=== PATIENT | female | born 1950 | race Two or more races ===

== ENCOUNTER 2018-06-18 23:27 | Inpatient (IN) | payer MEDICARE, BC ==
[~2018-06-18] VITALS: Ht 152.4 cm; Wt 46.3 kg
[2018-06-18 23:43] VITALS: BP 132/57
--- NOTE | 2018-06-18 23:43 | NUR ---
RN OPENING NOTES: RECEIVED PT FROM MICHELLE ACCOMPANIED BY 2 SEARCH ENGINE OPTIMIZATION MANAGER. PT ON ROOM AND TOLERATING WELL. NO SOB NOTED. NO S/S OF DISTRESS. PT HAS SLIGHT FACIAL DROOPING ON RIGHT SIDE OF FACE. PT HAS IV ON L AC #22G AND IS PATENT AND INTACT. CURRENTLY H/L FOR NOW. BED KEPT IN LOW, LOCKED POSITION, AND SIDE RAILS X 2UP. WILL CONTINUE TO MONITOR PT.
[2018-06-18] MEDS ORDERED: ESTR2TAB5 PO (23:59)
[2018-06-18] MEDS ORDERED: ROSU40TA PO (23:59)
[2018-06-18] MEDS ORDERED: ESOM40CA PO (23:59)
[2018-06-18] MEDS ORDERED: CLOP75TA15 PO (23:59)
[2018-06-19] VITALS: BP 132/57
[2018-06-19] MEDS ORDERED: ACETAMINOPHEN 325 MG TABLET PO PRN (00:30)
[2018-06-19] MEDS ORDERED: ZOLPIDEM TARTRATE 5 MG TABLET PO PRN (00:30)
[2018-06-19] MEDS ORDERED: Z GUARD REMEDY 2 OZ OINT TP PRN (00:30)
[2018-06-19] MEDS ORDERED: MAGNESIUM HYDROXIDE 30 ML UDC PO PRN (00:30)
[2018-06-19] MEDS ORDERED: HYDROCODONE/APAP 5/325MG 1 EACH TABLET PO PRN (00:30)
[2018-06-19] MEDS ORDERED: MAG HYDROX/AL HYDROX/SIMETH 30 ML UDC PO PRN (00:30)
[2018-06-19] MEDS ORDERED: ONDANSETRON HCL/PF 4 MG/2 ML VIAL IVP PRN (00:30)
--- NOTE | 2018-06-19 01:05 | NUR ---
RIBBON INKER NOTES: DID NURSE SWALLOW SCREEN. PT PASSED. Addendum: 06/19/18 at 0435 by JOHN MINAYA RN PT ABLE TO CLENCH TEETH, CLOSE LIPS, COUGH 2X AND SWALLOW WITHOUT DROOLING.
[2018-06-19 01:25] LABS: BASOPHILS # (AUTO) 0.1 /CMM (0.0-0.2); BASOPHILS % (AUTO) 0.9 % (0.0-2.0); EOSINOPHILS % (AUTO) 1.7 % (0.0-6.0); HEMATOCRIT 34 % (33-45); HEMOGLOBIN 11.5 g/dL (11.5-14.8); LYMPHOCYTES % (AUTO) 50.5 % (20.0-44.0); MEAN CORPUSCULAR HGB CONC 34 g/dl (31.0-36.0); MEAN CORPUSCULAR VOLUME 87 fL (82-100); MONOCYTES # (AUTO) 0.5 /CMM (0.1-1.30); MONOCYTES % (AUTO) 9.1 % (2.0-12.0); NEUTROPHILS # (AUTO) 2.2 /CMM (1.8-8.9); NEUTROPHILS % (AUTO) 37.8 % (43.0-81.0); PLATELET COUNT (AUTO) 196 /CMM (150-450); RED BLOOD CELL COUNT(AUTO) 3.88 MIL/uL (4.0-5.2); WHITE BLOOD COUNT (AUTO) 5.9 K/uL (4.3-11.0)
[2018-06-19 01:33] LABS: CREATININE 0.9 mg/dL (0.6-1.3)
--- NOTE | 2018-06-19 01:33 | NUR ---
PRECISION LAYOUT WORKER NOTES: URINE COLLECTED AND PLACED IN REFRIGERATOR.
[2018-06-19 01:45] LABS: ALBUMIN 3.6 g/dL (3.4-5.0); BILIRUBIN,TOTAL 0.3 mg/dL (0.2-1.0); TOTAL PROTEIN, SERUM 7.4 g/dL (6.4-8.2)
[2018-06-19 01:47] LABS: THYROID STIMULATING HORMONE 6.443 uIU/mL (0.358-3.74)
--- NOTE | 2018-06-19 01:51 | NUR ---
WALNUT DEHYDRATOR OPERATOR NOTES: DR. MOSLEY AT BEDSIDE.
--- NOTE | 2018-06-19 01:59 | NUR ---
SPOUT TENDER NOTES: DR. MOSLEY ON FLOOR. GOT ORDER FOR ONE TIME ORDER XANAX 0.25MG PO X 1 TO KEEP HER CALM.
[2018-06-19] MEDS ORDERED: ENOXAPARIN SODIUM 40 MG/0.4 ML DISP.SYRIN SQ ONE (02:00)
[2018-06-19] MEDS ORDERED: ALPRAZOLAM 0.25 MG TABLET PO ONE (02:15)
[2018-06-19] MEDS ORDERED: hydrALAZINE HCL 25 MG TABLET PO PRN (03:30)
[2018-06-19 04:00] VITALS: BP 99/46
[2018-06-19] MEDS ORDERED: BLOOD SUGAR DIAGNOSTIC 1 EACH STRIP IN SCH (06:00)
[2018-06-19] MEDS: BLOOD SUGAR DIAGNOSTIC 1 EACH STRIP IN SCH ×4 (06:21→21:43)
--- NOTE | 2018-06-19 06:42 | NUR ---
ARTIFICIAL FLY TIER CLOSING NOTES: ALL NEEDS WERE ATTENDED AND ANTICIPATED FOR. PT KEPT CLEAN, DRY, AND COMFORTABLE. IV REMAINS IN TACT ON L AC AND IS PATENT AND INTACT. CURRENTLY H/L. STROKE PACKED PROVIDED TO PT AT BEDSIDE. PT IS ASLEEP AT THIS TIME. NEURO CHECKS HAVE BEEN DONE ORDERED. PT ON TELE BOX AND READING SHOWS SB 55. MRSA COLLECTED FROM LEFT NARE AND SENT TO LAB. BLOOD SUGAR THIS AM WAS 91 JUST FOR MONITORING. BED KEPT IN LOW, LOCKED POSITION, AND SIDE RAILS X 2UP. WILL ENDORSE TO AM NURSE FOR SOCRATES.
--- NOTE | 2018-06-19 07:10 | NUR ---
TEXTED DR. LEI FOR MRI APPROVAL.
--- NOTE | 2018-06-19 07:30 | NUR ---
INSTANT PRINTER OPERATOR NOTES PT IN BED, ALERT AND ORIENTED X 4, NO COMPLAINT OF PAIN, RESPIRATIONS NORMAL, STATED THAT SHE SLEPT WELL AND FEELS BETTER, KEPT ON LOW BED AND BED ALARM ON FOR SAFETY, ABLE TO AMBULATE TO THE BATHROOM WITH STEADY GAIT WITH STANDBY ASSIST, CALL LIGHT WITHIN REACH, NEEDS ATTENDED.
[2018-06-19 08:00] VITALS: BP 116/48
[2018-06-19] MEDS: PANTOPRAZOLE 40 MG TABLET.DR PO SCH (08:11)
[2018-06-19] MEDS: ASPIRIN 81 MG TAB.CHEW PO SCH (08:51)
[2018-06-19] MEDS: CLOPIDOGREL BISULFATE 75 MG TABLET PO SCH (08:51)
--- NOTE | 2018-06-19 12:20 | NUR ---
RN MS NOTES PT IN BED, AWAKE, ALERT AND ORIENTED, DENIES PAIN, NEURO CHECKS DONE ORDERED, ABLE TO AMBULATE TO THE BATHROOM WITH STEADY GAIT WITH STANDBY ASSISTANCE, NO SWALLOWING PROBLEM, ATE 100% OF HER BREAKFAST, SEEN BY DR. CAMARGO, PLAN OF CARE DISCUSSED WITH PT, VERBALIZED UNDERSTANDING.
[2018-06-19 16:00] VITALS: BP 130/72
--- NOTE | 2018-06-19 16:00 | NUR ---
RN MS NOTES RECEIVED PT'S MRI OF THE BRAIN RESULT FROM DR. SHARIF, DR. SHERMAN INFORMED, CALL WAS MADE TO DR. CAMARGO, AWAITING FURTHER ORDERS, PT IN BED RESTING, NEUROCHECKS DONE ORDERED, MONITORED CLOSELY.
[2018-06-19] MEDS: ATORVASTATIN 40 MG TABLET PO SCH (17:24)
--- NOTE | 2018-06-19 18:24 | NUR ---
RN MS NOTES PT IN BED, AWAKE, ALERT AND ORIENTED, DENIES PAIN, AMBULATES WITH STEADY GAIT TO THE BATHROOM, NO COMPLAINT OF HEADACHE, VITAL SIGNS STABLE, ONLY VERY SLIGHT RIGHT FACIAL DROOP NOTED, NO SWALLOWING PROBLEM, WITH GOOD APPETITE, PM MEDS GIVEN, NEEDS ATTENDED, MONITORED PT CLOSELY.
--- NOTE | 2018-06-19 19:25 | NUR ---
RN MS OPENING NOTES RECEIVED PT IN BED, AWAKE ALERT ORIENTEDX4. BREATHING EVEN AND UNLABORED ON ROOM AIR, NO COUGH OR CONGESTION. NO NOTICEABLE FACIAL DROOPING, NO COMPLAINT OF PAIN OR DISCOMFORT AT THIS TIME. IV ACCESS ON THE L AC #22 G SL PATENT AND FLUSHING. BED IN LOWEST LOCKED POSITION, CALL LIGHT WITHIN REACH AT ALL TIMES, WILL CONTINUE TO MONITOR
[2018-06-19 20:00] VITALS: BP 136/74
[2018-06-19] MEDS: ENOXAPARIN SODIUM 40 MG/0.4 ML DISP.SYRIN SQ SCH (21:33)
[2018-06-19] MEDS: ESTRADIOL 1 MG TABLET PO SCH (21:33)
--- NOTE | 2018-06-20 06:05 | NUR ---
PT REMAINS IN BED, SLEEPING, BREATHING EVEN AND UNLABORED ON RA. NO COMPLAINT OF PAIN OR DISCOMFORT AT THE MOMENT, NO NOTICEABLE FACIAL DROOPING. IV ACCESS ONT HE L AC 22GSL PATENT AND FLUSHING. BED IN LOWEST LOCKED POSITION, CALL LIGHT WITHIN REACH AT ALL TIMES, NO SIGNIFICANT CHANGE IN CONDITION DURING SHIFT, WILL ENDORSE TO DAY NURSE FOR SOCRATES.
--- NOTE | 2018-06-20 07:30 | NUR ---
M/S RN - Assessment Patient in bed awake, A/O x 4, speech clear, mild right facial droop, no c/o weakness, denies chest pain, no apparent distress noted, stable on room air. Saline lock on the LAC is patent, intact, with no signs of infiltration. Skin is intact, pt independent with bed mobility. Fall precautions maintained. Patient educated on plan of care. Awaiting neuro clearance for possible discharge home today.
[2018-06-20] MEDS: BLOOD SUGAR DIAGNOSTIC 1 EACH STRIP IN SCH ×4 (07:31→21:01)
[2018-06-20] MEDS: PANTOPRAZOLE 40 MG TABLET.DR PO SCH (07:32)
[2018-06-20 07:44] LABS: BASOPHILS # (AUTO) 0.1 /CMM (0.0-0.2); BASOPHILS % (AUTO) 0.9 % (0.0-2.0); EOSINOPHILS % (AUTO) 3.3 % (0.0-6.0); HEMATOCRIT 39 % (33-45); LYMPHOCYTES % (AUTO) 48.3 % (20.0-44.0); MEAN CORPUSCULAR HGB CONC 34 g/dl (31.0-36.0); MEAN CORPUSCULAR VOLUME 87 fL (82-100); MONOCYTES # (AUTO) 0.5 /CMM (0.1-1.30); MONOCYTES % (AUTO) 7.3 % (2.0-12.0); NEUTROPHILS # (AUTO) 2.5 /CMM (1.8-8.9); NEUTROPHILS % (AUTO) 40.2 % (43.0-81.0); PLATELET COUNT (AUTO) 226 /CMM (150-450); RED BLOOD CELL COUNT(AUTO) 4.41 MIL/uL (4.0-5.2); WHITE BLOOD COUNT (AUTO) 6.2 K/uL (4.3-11.0)
[2018-06-20 07:50] LABS: CALCIUM, SERUM 9.4 mg/dL (8.5-10.1); CREATININE 0.8 mg/dL (0.6-1.3); PHOSPHORUS 4.5 mg/dL (2.5-4.9); POTASSIUM 4.3 mmol/L (3.5-5.1)
[2018-06-20 08:00] VITALS: BP 100/65
[2018-06-20] MEDS: CLOPIDOGREL BISULFATE 75 MG TABLET PO SCH (08:01)
[2018-06-20] MEDS: ASPIRIN 81 MG TAB.CHEW PO SCH (08:01)
--- NOTE | 2018-06-20 15:50 | NUR ---
SW consult, social science analyst attempted to speak with pt regarding stroke consultation. Pt was not in her room.
[2018-06-20 16:00] VITALS: BP 133/65
--- NOTE | 2018-06-20 17:15 | NUR ---
M/S RN - Closing notes Patient states feeling better, denies any weakness, no facial drooping at this time, ambulatory with steady gait. Echo shows left atrium is normal size, ejection fraction 55%, no pericardial effusion or intracardiac thrombus. Patient wanted to go home today but not cleared by neuro. Patient updated on plan of care. Will continue with current medical management. Addendum: 06/20/18 at 1720 by MAICOL MAZARIEGOS RN In addition to above notes: Patient afebrile, blood sugar controlled, speech is clear. Continue neuro checks as ordered.
[2018-06-20] MEDS: ATORVASTATIN 40 MG TABLET PO SCH (17:32)
--- NOTE | 2018-06-20 19:20 | NUR ---
MS RN OPENING NOTES: RECEIVED PT ON ROOM AIR AND IS TOLERATING WELL. NO S/S OF DISTRESS. NO SOB NOTED. PT IS A/OX4. PT HAS IV ON LAC #22G AND IS PATENT AND INTACT. CURRENTLY H/L. BED KEPT IN LOW, LOCKED POSITION, AND SIDE RAILS X 2UP. WILL CONTINUE TO MONITOR PT.
[2018-06-20 20:00] VITALS: BP 126/60
[2018-06-20] MEDS: ENOXAPARIN SODIUM 40 MG/0.4 ML DISP.SYRIN SQ SCH (20:16)
[2018-06-20] MEDS: ESTRADIOL 1 MG TABLET PO SCH (21:01)
[2018-06-21] MEDS: BLOOD SUGAR DIAGNOSTIC 1 EACH STRIP IN SCH ×2 (06:10→12:43)
[2018-06-21 06:21] LABS: BASOPHILS # (AUTO) 0.1 /CMM (0.0-0.2); EOSINOPHILS % (AUTO) 2.6 % (0.0-6.0); HEMATOCRIT 39 % (33-45); HEMOGLOBIN 12.9 g/dL (11.5-14.8); LYMPHOCYTES # (AUTO) 3.7 /CMM (0.8-4.8); LYMPHOCYTES % (AUTO) 54.2 % (20.0-44.0); MEAN CORPUSCULAR HGB CONC 33 g/dl (31.0-36.0); MEAN CORPUSCULAR VOLUME 88 fL (82-100); MONOCYTES # (AUTO) 0.5 /CMM (0.1-1.30); MONOCYTES % (AUTO) 7.1 % (2.0-12.0); NEUTROPHILS # (AUTO) 2.4 /CMM (1.8-8.9); NEUTROPHILS % (AUTO) 35.1 % (43.0-81.0); PLATELET COUNT (AUTO) 227 /CMM (150-450); WHITE BLOOD COUNT (AUTO) 6.7 K/uL (4.3-11.0)
--- NOTE | 2018-06-21 06:39 | NUR ---
MS RN CLOSING NOTES: ALL NEEDS WERE ATTENDED AND ANTICIPATED FOR. PT RESTING IN BED COMFORTABLY ON HER PHONE. NO S/S OF DISTRESS. NO SOB NOTED. PT WOULD LIKE TO BE HOME FOR THE HOLIDAYS. IV REMAINS INTACT. CURRENTLY H/L. BLOOD SUGAR THIS AM WAS 88. NO FACIAL DROOPING NOTED/NO SLURRING OF SPEECH. BED KEPT IN LOW, LOCKED POSITION, AND SIDE RAILS X 2UP. WILL CONTINUE TO MONITOR PT.
[2018-06-21 06:59] LABS: CREATININE 0.8 mg/dL (0.6-1.3); POTASSIUM 3.9 mmol/L (3.5-5.1)
--- NOTE | 2018-06-21 07:30 | NUR ---
RN MS NOTES PT IN BED, AWAKE, ALERT AND ORIENTED, NO COMPLAINT OF PAIN OR ANY DISCOMFORT, RESPIRATIONS NORMAL, CALL LIGHT WITHIN REACH, STATES SHE FEELS WELL RESTED, TOLERATING CURRENT DIET, NO SWALLOWING PROBLEM NOTED, AMBULATES WITH STEADY GAIT TO THE BATHROOM, NEEDS ATTENDED.
[2018-06-21 08:00] VITALS: BP 119/49
[2018-06-21] MEDS: PANTOPRAZOLE 40 MG TABLET.DR PO SCH (08:01)
[2018-06-21] MEDS: CLOPIDOGREL BISULFATE 75 MG TABLET PO SCH (08:55)
[2018-06-21] MEDS ORDERED: ASPIRIN EC 81 MG TABLET.DR PO SCH (09:00)
[2018-06-21] MEDS ORDERED: ASPI-1152 PO (14:42)
--- NOTE | 2018-06-21 15:25 | NUR ---
RN MS NOTES PT AWAKE, ALERT AND ORIENTED, WALKING ALONG THE HALLWAY WITH STEADY GAIT, NO COMPLAINT OF HEADACHE OR DIZZINESS, RESPIRATIONS NORMAL, SEEN AND EXAMINED BY ADELAIDA MASON INDUSTRIAL LOCOMOTIVE OPERATOR, DISCHARGE ORDER GIVEN, DISCHARGE AND MEDICATION INSTRUCTIONS PROVIDED TO PT, VERBALIZED UNDERSTANDING, STROKE EDUCATION PROVIDED, STROKE PACKET PROVIDED TO PT, PT VERBALIZED UNDERSTANDING, BELONGINGS ACCOUNTED FOR, PICKED UP BY , ASSISTED VIA WHEELCHAIR TO HOSPITAL LOBBY BY CRYPTOANALYSIS TEACHER, LEFT VIA PRIVATE CAR IN STABLE CONDITION.
== END 2018-06-21 15:30 | disposition home or self-care (01) | DRG 66 ==
LOC: MED 23:27 → TELE 06-19 00:02 → MED 06-19 09:51
PROVIDERS: ADMIT Internal Medicine; ATTEND Nurse Practitioner Acute Care
DX: I63.89 Other cerebral infarction (principal); E78.5 Hyperlipidemia, unspecified; I10 Essential (primary) hypertension; D63.8 Anemia in other chronic diseases classified elsewhere; I25.10 Atherosclerotic heart disease of native coronary artery without angina pectoris; I65.22 Occlusion and stenosis of left carotid artery; Z95.1 Presence of aortocoronary bypass graft; Z86.79 Personal history of other diseases of the circulatory system; I73.9 Peripheral vascular disease, unspecified; K21.9 Gastro-esophageal reflux disease without esophagitis
CPT/HCPCS: 36415; 70551-TC; 80048-TC; 80053-TC; 80061-TC; 82962-TC; 83735-TC; 83880; 84100-TC; 84443-TC; 85025-TC; 85652-TC; 85730-TC; 87081-TC; 92521; 92611-TC; 93307-TC; 93880-TC; G0378; J1650